=== PATIENT | female | born 1950 | race Caucasian/White ===

== ENCOUNTER 2022-10-15 23:17 | Inpatient (IN) | payer MEDICARE, OTHER ==
[~2022-10-15] VITALS: Ht 165.1 cm; Wt 62.1 kg
--- NOTE | 2022-10-16 01:23 | NUR ---
ELECTRICAL HELPER NOTES ADMITTED A 70Y/O, FEMALE AWAKED AOX2 WITH CONFUSION ARMENIA/VIETNAMESE SPEAKING WITH A LITTLE SLOVENIAN,FROM [facility] ON 5150 HOLD FOR DTS. PER HOLD,PATIENT HEARD THE NEWS THAT HER YOUNGER SON WAS ARRESTED YESTERDAY AND SHE DECIDED TO END HER LIFE THIS MORNING,SHE TOOK 50 OF HER PRESCRIBED SLEEPING PILLS IN SUICIDE ATTEMPT BY CRUSHING THEM,SHE WROTE GOODBYE NOTE ON A PIECE OF PAPER IN VIETNAMESE AND HER SUN IS UNABLE TO READ IT,WANTED TO AND END UP THING,PT HISTORY HYPERTENSION,DM,BRAIN ANEURYSM,DEPRESSION,PT COOPERATIVE TO CARE. SKIN ASSESSMENT DONE. SKIN INTACT. ALL BELONGINGS WERE CHECKED FOR CONTRABAND. PATIENT'S RIGHTS WERE DISCUSSED AND BOOKLET WAS GIVEN. CONTACTED DR. UNGER AND HOSPITALIST VERNELL SULLIVAN AND INFORMED THEM OF THE ADMISSION. BED IN LOW AND LOCKED POSITION. PT UNABLE TO SIGN ADMITTING DOCUMENTS D/T CONFUSION,WEAK, LETHARGIC,SAFETY PRECAUTIONS MAINTAINED. WILL CONTINUE TO MONITOR Q15 MINS FOR MOOD, SAFETY AND BEHAVIOR.
[2022-10-16] MEDS ORDERED: ACETAMINOPHEN 325 MG TABLET PO PRN (01:30)
[2022-10-16] MEDS ORDERED: MAG HYDROX/AL HYDROX/SIMETH 30 ML UDC PO PRN (01:30)
[2022-10-16] MEDS ORDERED: BLOOD SUGAR DIAGNOSTIC 1 EACH STRIP IN ONE (01:30)
[2022-10-16] MEDS ORDERED: MAGNESIUM HYDROXIDE 30 ML UDC PO PRN (01:30)
[2022-10-16 07:46] LABS: CHOLESTEROL 308 mg/dL (<200); HDL CHOLESTEROL 58 mg/dL (40-60); LDL 212 mg/dL (0-99); TRIGLYCERIDES 133 mg/dL (30-150)
[2022-10-16 07:56] LABS: CREATININE 0.5 mg/dL (0.6-1.3)
[2022-10-16 08:00] VITALS: BP 120/60; TEMP 100.4; O2SAT 96
[2022-10-16] MEDS ORDERED: AMYL1CAP58 PO (12:34)
[2022-10-16] MEDS ORDERED: SEMA14TA PO (12:34)
[2022-10-16] MEDS ORDERED: CANA300T PO (12:34)
[2022-10-16] MEDS ORDERED: LINA5TAB PO (12:34)
[2022-10-16] MEDS ORDERED: LATA5DRO EACHEYE (12:34)
[2022-10-16] MEDS ORDERED: OLME20TA13 PO (12:34)
[2022-10-16] MEDS ORDERED: SITA1TAB6 PO (12:34)
[2022-10-16] MEDS ORDERED: ATEN50TA PO (12:34)
--- NOTE | 2022-10-16 13:25 | NUR ---
[facility] Clinical Note: Pt placed on a 5150 hold for danger to herself. Per hold, pt attempted to end her life. Patient currently resides at [address] [place] [address]; ([phone]). PARK will contact pt's son Garland ([phone]) and will discuss treatment/discharge plan.
--- NOTE | 2022-10-16 13:25 | NUR ---
[facility] Initial Discharge Note: Patient currently resides at [address] [place] [address]; ([phone]). PARK will contact pt's son Garland ([phone]) and will discuss treatment/discharge plan. PARK will work with the MD, family, and treatment team.
--- NOTE | 2022-10-16 13:57 | NUR ---
[facility]K Family Contact: PARK contacted pt's son Garland ([phone]) and left a detailed voicemail of treatment/discharge plan.
--- NOTE | 2022-10-16 14:39 | NUR ---
[facility]K Family Contact: PARK contacted pt's son Garland ([phone]) and discussed treatment/discharge plan. PARK explained [id number] process and educated. He stated that he is the DPOA but does not have the document. He stated that he would want pt back home upon discharge.
[2022-10-16 16:00] VITALS: BP 134/66; TEMP 97.8; O2SAT 96
--- NOTE | 2022-10-16 19:42 | NUR ---
GPS RN NOTES NOTIFIED VERNELL BAÑUELOS TO RECONCILE HOME MEDS. CHARGE NURSE AWARE.
[2022-10-16 20:00] VITALS: BP 121/64; TEMP 97.3; O2SAT 96
[2022-10-16] MEDS: MIRTAZAPINE 15 MG TABLET PO SCH (21:11)
[2022-10-16] MEDS: LINAGLIPTIN 5 MG TABLET PO SCH (21:55)
[2022-10-17 07:18] LABS: CALCIUM, SERUM 9.5 mg/dL (8.5-10.1); CARBON DIOXIDE 23 mmol/L (21-32); CHLORIDE 105 mmol/L (98-107); CREATININE 0.5 mg/dL (0.6-1.3); GLUCOSE 166 mg/dL (74-106); POTASSIUM 3.9 mmol/L (3.5-5.1); SODIUM SERUM 139 mmol/L (136-145); UREA NITROGEN, BLOOD 23 mg/dL (7-18)
[2022-10-17 07:24] LABS: ALANINE AMINOTRANSFERASE 25 U/L (12-78); ALBUMIN 3.5 g/dL (3.4-5.0); ALKALINE PHOSPHATASE 60 U/L (46-116); ASPARTATE AMINOTRANSFERASE 10 U/L (15-37); BILIRUBIN,TOTAL 0.4 mg/dL (0.2-1.0)
[2022-10-17 08:00] VITALS: BP 119/73; TEMP 98.6; O2SAT 96
[2022-10-17] MEDS: LIPASE/PROTEASE/AMYLASE 1 EACH CAPSULE.DR PO SCH ×3 (08:30→16:55)
[2022-10-17] MEDS: LINAGLIPTIN 5 MG TABLET PO SCH (08:31)
[2022-10-17] MEDS: ATENOLOL 50 MG TABLET PO SCH ×2 (08:31→21:20)
[2022-10-17] MEDS: LOSARTAN POTASSIUM 50 MG TABLET PO SCH (08:31)
[2022-10-17] MEDS ORDERED: LINAGLIPTIN 5 MG TABLET PO SCH (09:00)
--- NOTE | 2022-10-17 09:08 | NUR ---
GPS OPENING NOTE: RECEIVED PT IN BED AOX3. ABLE TO UNDERSTAND PAKISTANI. PT WITH PERIODS OF CONFUSION, COOPERATIVE WITH CARE, ISOLATIVE, GUARDED, ANXIOUS, ATE BREAKFAST, TAKES MEDICATION WHOLE. ON Q15 MIN MONITORING FOR BEHAVIOR AND SAFETY. PT IN ROOM SLEEPING.
--- NOTE | 2022-10-17 13:12 | NUR ---
GPS RN NOTE: [facility]ANG [facility] [phone] WILL BRING THE 4 MEDICATION : STAGLIPITIN, RYBELSUS, VYZULTA, INVOKANA
[2022-10-17 16:00] VITALS: BP 106/60; TEMP 98.2; O2SAT 97
[2022-10-17 20:33] VITALS: BP 125/62; TEMP 97.6; O2SAT 95
[2022-10-17] MEDS: MIRTAZAPINE 15 MG TABLET PO SCH (21:20)
[2022-10-18 08:00] VITALS: BP 100/57; TEMP 98.6; O2SAT 99
[2022-10-18] MEDS: LIPASE/PROTEASE/AMYLASE 1 EACH CAPSULE.DR PO SCH ×3 (08:40→17:45)
[2022-10-18] MEDS: ATENOLOL 50 MG TABLET PO SCH ×2 (08:41→20:20)
[2022-10-18] MEDS: LOSARTAN POTASSIUM 50 MG TABLET PO SCH (08:42)
[2022-10-18] MEDS: LINAGLIPTIN 5 MG TABLET PO SCH (08:42)
[2022-10-18] MEDS ORDERED: BLOOD SUGAR DIAGNOSTIC 1 EACH STRIP IN SCH (09:00)
[2022-10-18 16:00] VITALS: BP 127/54; TEMP 97.7; O2SAT 96
[2022-10-18] MEDS ORDERED: DEXTROSE 50%-WATER 50 ML DISP.SYRIN IV PRN (16:30)
[2022-10-18] MEDS: BLOOD SUGAR DIAGNOSTIC 1 EACH STRIP IN SCH ×2 (17:35→21:53)
[2022-10-18] MEDS: INSULIN REGULAR, HUMAN 100 UNIT/ML 3 ML VIAL SQ PRN ×2 (17:36→21:54)
[2022-10-18] MEDS ORDERED: VYZULTA EACHEYE SCH (18:00)
--- NOTE | 2022-10-18 19:00 | NUR ---
pt son arrived and brought medications and clothing.
[2022-10-18 20:18] VITALS: BP 122/71; TEMP 97.8; O2SAT 98
[2022-10-18] MEDS: JANUMET PO SCH (20:19)
[2022-10-18] MEDS: SEMAGLUTIDE 14 MG PO SCH (20:19)
[2022-10-18] MEDS: MIRTAZAPINE 15 MG TABLET PO SCH (21:33)
--- NOTE | 2022-10-18 21:46 | NUR ---
PATIENT REFUSED REMERON, OFFERED X3, EXPLAINED BENEFITS, PATIENT STILL REFUSED, WILL CONTINUE TO MONITOR
--- NOTE | 2022-10-18 21:55 | NUR ---
PATIENT BS CHECK DONE BS 218, PATIENT REFUSED INSULIN COVERAGE. EXPLAINED RISKS AND BENEFITS, OFFERED X3, PT STILL REFUSED, WILL ENDORSE TO NEXT SHIFT, WILL CONTINUE TO MONITOR, NO S/S OF ANY DISTRESS NOTED
[2022-10-19] MEDS: BLOOD SUGAR DIAGNOSTIC 1 EACH STRIP IN SCH ×4 (07:43→21:37)
[2022-10-19] MEDS: CANAGLIFLOZIN 300 MG PO SCH (07:44)
[2022-10-19 08:00] VITALS: BP 111/66; TEMP 97.7; O2SAT 96
[2022-10-19] MEDS: LINAGLIPTIN 5 MG TABLET PO SCH (08:06)
[2022-10-19] MEDS: SEMAGLUTIDE 14 MG PO SCH (08:06)
[2022-10-19] MEDS: LIPASE/PROTEASE/AMYLASE 1 EACH CAPSULE.DR PO SCH ×3 (08:06→17:13)
[2022-10-19] MEDS: ATENOLOL 50 MG TABLET PO SCH ×2 (08:07→21:09)
[2022-10-19] MEDS: LOSARTAN POTASSIUM 50 MG TABLET PO SCH (08:07)
[2022-10-19] MEDS: JANUMET PO SCH (08:08)
--- NOTE | 2022-10-19 08:17 | NUR ---
RN-NOTES PATIENT BS WAS 218 MG/DL,PATIENT REFUSED COVERAGE OF 4 UNITS OF R INSULIN. PATIENT STATED" I ALREADY HAVE PILL,NO INSULIN PLEASE".OFFERED X3 Addendum: 10/19/22 at 1721 by MICHAEL CALIX RN REFUSED 8UNITS OF REGULAR INSULIN
[2022-10-19] MEDS ORDERED: DEXTROSE 50%-WATER 50 ML DISP.SYRIN IV PRN (11:00)
[2022-10-19] MEDS ORDERED: INSULIN REGULAR, HUMAN 100 UNIT/ML 3 ML VIAL SQ PRN (11:00)
[2022-10-19] MEDS ORDERED: *INSULIN REGULAR(HUMULIN R)HUM 100 UNIT/ML VIAL SQ PRN (11:00)
--- NOTE | 2022-10-19 12:25 | NUR ---
RN-NOTES PATIENT BS WAS 157 MG/DL,PATIENT REFUSED COVERAGE OF 2 UNITS OF R INSULIN. PATIENT STATED" I ALREADY HAVE PILL,NO INSULIN PLEASE".OFFERED X3
[2022-10-19 16:00] VITALS: BP 142/77; TEMP 98.1; O2SAT 96
--- NOTE | 2022-10-19 17:18 | NUR ---
RN-NOTES PATIENT BS WAS 171 MG/DL,PATIENT CONTINUE REFUSING HER INSULIN COVERAGE OF 4 UNITS OF R INSULIN. PATIENT STATED" I ALREADY HAVE PILL,NO INSULIN PLEASE".OFFERED X3
--- NOTE | 2022-10-19 19:08 | NUR ---
RN-NOTES PATIENT SON INO BROUGHT IN NEOSPORIN PLUS LIDOCAINE OINTMENT FOR HER LEFT CHEEK MOLE. JOHN CAMPBELL MADE AWARE WITH T.O ORDER TO APPLY ON LEFT CHEEK DAILY PRN ORDER. NOTED AND CARRIED OUT.
[2022-10-19 20:00] VITALS: BP 125/70; TEMP 97.5; O2SAT 96
[2022-10-19] MEDS ORDERED: [UNRECOGNIZED DRUG - OTHER] TP PRN (20:00)
[2022-10-19] MEDS: MIRTAZAPINE 15 MG TABLET PO SCH (21:09)
--- NOTE | 2022-10-19 21:38 | NUR ---
RN NOTES: REFUSED INSULLIN COVERAGE PT. BS 200 MGDL BUT PT. REFUSED INSULLIN COVERAGE REFUSED AT THIS TIME ,ENCOURAGED X3, PT.STRONGLY REFUSED, PER PT.STATUS I AM TAKING PILLS NO NEEDS INSULLIN COVERAGE ,
[2022-10-20] MEDS: BLOOD SUGAR DIAGNOSTIC 1 EACH STRIP IN SCH ×2 (07:45→12:01)
[2022-10-20] MEDS: CANAGLIFLOZIN 300 MG PO SCH (07:45)
[2022-10-20 08:00] VITALS: BP 110/64; TEMP 97.6; O2SAT 96
[2022-10-20] MEDS: SEMAGLUTIDE 14 MG PO SCH (08:04)
[2022-10-20] MEDS: JANUMET PO SCH (08:04)
[2022-10-20] MEDS: LINAGLIPTIN 5 MG TABLET PO SCH (08:04)
[2022-10-20] MEDS: LIPASE/PROTEASE/AMYLASE 1 EACH CAPSULE.DR PO SCH (08:04)
[2022-10-20] MEDS: LOSARTAN POTASSIUM 50 MG TABLET PO SCH (08:07)
[2022-10-20 08:08] VITALS: BP 110/64
[2022-10-20] MEDS: ATENOLOL 50 MG TABLET PO SCH (08:08)
--- NOTE | 2022-10-20 08:47 | NUR ---
RN-NOTES PATIENT BS WAS 174 MG/DL,PATIENT REFUSED COVERAGE OF 4 UNITS OF R INSULIN. PATIENT STATED" I ALREADY HAVE PILL,NO INSULIN PLEASE".OFFERED X3
--- NOTE | 2022-10-20 10:52 | NUR ---
[facility] Coordination of Care: Pt will follow up with Manager Secondary, Dr. Mondragon located at [address] [place] [address] [address], [place] [address]; ([phone]) on who will monitor and provide patients antipsychotic medications on October 24 at 11AM.
--- NOTE | 2022-10-20 10:53 | NUR ---
SW Discharge Note: Patient will be discharge back home located at [address] [place] [address]; ([phone]). Patients son Garland ([phone]) will miner pick pt at 12PM. Pt is alert and oriented x3. Pt happy to be going back home. Pt denies suicidal or homicidal ideation. Pt denies visual/auditory hallucinations. Pt will follow up with Seam Rubbing Machine Operator, Dr. Mondragon located at [address] [facility] [address], [place] [address]; ([phone]) on who will monitor and provide patients antipsychotic medications on October 24 at 11AM. Patient given resource for [facility] located at [address] [place] [address]; ([phone]). Pt presents with euthymic mood and congruent affect.
--- NOTE | 2022-10-20 11:45 | NUR ---
Dr. Ramirez gave an order to D/C hold and D/C home and provided prescriptions upon discharge.
--- NOTE | 2022-10-20 11:59 | NUR ---
RN-NOTES PATIENT BS WAS 180 MG/DL,PATIENT STILL REFUSED COVERAGE OF 4 UNITS OF R INSULIN. OFFERED X3
--- NOTE | 2022-10-20 12:13 | NUR ---
[facility] Family Contact: PARK contacted pt's son Garland ([phone]) stated pt has home health and they will resume the services.
--- NOTE | 2022-10-20 12:36 | NUR ---
RN-DISCHARGE NOTES PATIENT HAD A DISCHARGE ORDER FROM ( PSYCHIATRIST) JOHN CAMPBELL MEDICALLY CLEARED PATIENT FOR DISCHARGE. PATIENT WAS DISCHARGE HOME. PATIENT LEFT THE UNIT IN STABLE CONDITION A/O X4,AMBULATORY STEADY GAIT, NO ACUTE DISTRESS NOTED. PATIENT DID NOT VERBALIZE SI/HI DENIES VISUAL/AUDITORY HALLUCINATIONS AT THE THE OF DISCHARGE. ALL BELONGINGS WAS GIVEN BACK TO THE PATIENT. INSTRUCTED PATIENT TO CALL 911 OR GO TO THE NEAREST EMERGENCY ROOM INCASE OF EMERGENCY . SKILLED NURSING FACILITY COUNSELOR BY PATIENT'S SON MITRA, ALL RX AND BELONGINGS WAS ENDORSED AND GIVEN TO MITRA.PER SW,PATIENT'S SON STATED THAT PATIENT HAD A HOME HEALTH.
== END 2022-10-20 12:35 | disposition home or self-care (01) | DRG 881 ==
LOC: GPS 10-16 01:05
PROVIDERS: ADMIT Psychiatry & Neurology Psychosomatic Medicine; ATTEND Nurse Practitioner Acute Care
DX: F32.9 Major depressive disorder, single episode, unspecified (principal); R45.851 Suicidal ideations; F29 Unspecified psychosis not due to a substance or known physiological condition; F41.9 Anxiety disorder, unspecified; R41.9 Unspecified symptoms and signs involving cognitive functions and awareness; E78.5 Hyperlipidemia, unspecified; I10 Essential (primary) hypertension; E11.9 Type 2 diabetes mellitus without complications; Z86.73 Personal history of transient ischemic attack (TIA), and cerebral infarction without residual deficits; D25.9 Leiomyoma of uterus, unspecified; Z83.3 Family history of diabetes mellitus; Z82.61 Family history of arthritis; Z83.438 Family history of other disorder of lipoprotein metabolism and other lipidemia; Z82.49 Family history of ischemic heart disease and other diseases of the circulatory system
CPT/HCPCS: 36415; 80053-TC; 80061-TC; 82565-TC; 82962-TC; 87081-TC; 97110-TC; 97116-TC; 97530-TC; J1815